=== PATIENT | male | born 1995 | race Hispanic/Latino ===

== ENCOUNTER 2023-06-13 12:15 | Emergency (ER) | payer BC ==
[~2023-06-13] VITALS: Ht 175.3 cm; Wt 111.1 kg
[2023-06-13] MEDS ORDERED: CLIN-141 PO (14:38)
[2023-06-13 15:00] VITALS: BP 131/74; PULSE 68; RESP 20; O2SAT 100
[2023-06-13] MEDS: CLINDAMYCIN 150 MG CAP PO ONE (15:03)
== END 2023-06-13 15:16 | disposition home or self-care (01) ==
LOC: EDH 12:15
DX: S40.861A Insect bite (nonvenomous) of right upper arm, initial encounter (principal); W57.XXXA Bitten or stung by nonvenomous insect and other nonvenomous arthropods, initial encounter; Y93.89 Activity, other specified; Y92.89 Other specified places as the place of occurrence of the external cause; Y99.8 Other external cause status